=== PATIENT | female | born 1975 | race African-American/Black ===

== ENCOUNTER 2016-07-29 08:36 | Emergency (ER) | payer OTHER ==
--- NOTE | ~2016-07-29 | CR181 ---
[facility] A Service of [facility] & [facility] RADIOLOGY TEXT RESULTS PATIENT: ÓSCAR HILL LOCATION: [facility] : 75 UNIT #: [id number] AGE: [address]: Monet Aguilar APRN SEX: F ORDER DR: [id number] [facility] [address] [place], [place] [address] [id number] E MR#: [id number] Acc #: [id number] NAME: ÓSCAR HILL : 1975 SEX: F STUDY DATE/TIME: 07/29/2016 9:56 UNIT: [facility] ROOM: STUDY DESCRIPTION: CR Lumbar Spine 2 or 3 Views Attending Physician: Monet Aguilar A.P.R.N. Ordering Physician: [facility] Primary Care Physician: [facility] MEDICAL IMAGING REPORT This report is preliminary unless electronic signature is present EXAM Three views lumbar spine. DATE: 07/28/2016 HISTORY 41-year-old female with pelvic pain radiating to the left knee for 2 weeks. No known trauma. Physician's order states radiculopathy. COMPARISON None FINDINGS No acute lumbar spine fracture or subluxation is seen. There are tiny anterior-superior osteophytes at T12 and L4. No sacroiliac joint diastasis. Bilateral fallopian tube occlusion devices are incidentally noted. IMPRESSION Normal lumbar spine. Dictated by... Shae Ruiz M.D. THIS IS AN ELECTRONICALLY VERIFIED REPORT Shae Ruiz M.D. at 08/01/2016 8:36 AM [facility]/gen TD: 07/29/2016 14:28 JOB #: [id number] MEDICAL IMAGING REPORT Page 1 of 1 COPY
[~2016-07-29 08:36] MED LIST: ALBUTEROL17 G1 IH; ALBUTEROL17 GM; AURALGAN OT; AZMACORT20 GM INH; BACTRIM DS TABL1 TA1 PO; BENZONATATE PO; CEFTIN PO; CLARITIN10 MG PO; DEPO-PROVER150 MG/ML; DOXYCYCLINE HY100 M1 PO; FLAGYL PO; FLONASE16 GM; FLOVENT HFA12 GM INH; IBUPROFEN PO; LEVAQUIN PO; LORTAB 10-5001 EACH PO; PRENATAL VITAMI1 TA3 PO; RONDEC SYRUP PO; SEREVENT D50 MCG/DIS PO; SUDAFED30 M1 PO; ZITHROMAX PO
[2016-07-29 09:24] LABS: URINE SOURCE CLEAN CATCH
[2016-07-29 09:58] LABS: URINE APPEARANCE CLEAR; URINE BILIRUBIN NEG (NEG); URINE BLOOD NEG (NEG); URINE COLOR YELLOW; URINE GLUCOSE NEG (NEG); URINE KETONE NEG (NEG); URINE LEUKOCYTE ESTERASE NEG (NEG); URINE NITRATE NEG (NEG); URINE PROTEIN NEG (NEG); URINE SPECIFIC GRAVITY 1.023 (1.003-1.035)
[2016-07-29 10:10] LABS: CULTURE INDICATED? NO
== END 2016-07-29 11:56 | disposition home or self-care (01) ==
LOC: CED 08:36
PROVIDERS: Nurse Practitioner
DX: M54.42 Lumbago with sciatica, left side (principal); E11.9 Type 2 diabetes mellitus without complications; Z79.84 Long term (current) use of oral hypoglycemic drugs; Z88.0 Allergy status to penicillin
CPT/HCPCS: 72100; 81003; 82947; 84703; 96372; 99284; J1885; J2360